=== PATIENT | female | born 1995 | race Two or more races ===

== ENCOUNTER 2017-03-28 00:11 | Emergency (ER) | payer SELFPAY ==
[~2017-03-28] VITALS: Ht 167.6 cm; Wt 114.7 kg
[2017-03-28 00:17] VITALS: BP 158/98
[2017-03-28] MEDS ORDERED: MOUTH SORE15 ML MM (01:05)
[2017-03-28] MEDS ORDERED: AMOXICILLIN500 M1 PO (01:05)
== END 2017-03-28 01:47 | disposition home or self-care (01) ==
LOC: EME 00:11
DX: J02.9 Acute pharyngitis, unspecified (principal); F17.200 Nicotine dependence, unspecified, uncomplicated
CPT/HCPCS: 87077; 87081; 87185; 87491; 87591; 87651 90; 99281; 99285; J0696